=== PATIENT | female | born 1960 | race Caucasian/White ===

== ENCOUNTER → 2017-03-26 | Outpatient (CLI) | payer BC ==
[~2017-03-26] MED LIST: CLEOCIN PO; LORATADINE PO; PREDNISONE PO; SYNTHROID PO
--- NOTE | ~2017-03-26 | MY11 ---
[facility] A Service of [facility] RADIOLOGY TEXT RESULTS PATIENT: JULIANNE ROTHMAN LOCATION: [facility] : 62 UNIT #: [id number] AGE: [address]: JOSELINE SIDHU SEX: F ORDER DR: [id number] [facility] [address] [place], [place] [address] [id number] O MR#: [id number] Acc #: [id number] NAME: JULIANNE ROTHMAN : 1960 SEX: F STUDY DATE/TIME: 03/26/2017 11:23 UNIT: [facility] ROOM: STUDY DESCRIPTION: MY Mammogram Screening [place] Attending Physician: Joseline Sidhu M.D. Referring Physician: Joseline Sidhu M.D. Ordering Physician: Staff Doctor Not On Primary Care Physician: Leonid Ellsworth M.D. MEDICAL IMAGING REPORT This report is preliminary unless electronic signature is present EXAM Screening mammogram 03/26/2017 INDICATIONS 56-year-old. No personal history but a positive family history of breast cancer. No current complaints. FINDINGS Routine digital screening views of both breasts were obtained. Study is reviewed with an FDA-approved CAD device. Comparison made with 02/12/2016, 05/26/2014. Breast parenchyma shows scattered fibroglandular densities. No new masses or suspicious microcalcifications are seen. IMPRESSION Negative mammogram. Routine screen in 1 year is recommended. Patients over the age of 40 are entered into a reminder system with target due date for the next mammogram. A result letter will also be sent to the patient. BIRADS: 1, negative. Dictated by... Ike Nguyen Jr., M.D. THIS IS AN ELECTRONICALLY VERIFIED REPORT Ike Nguyen Jr., M.D. at 03/27/2017 6:10 AM MARGARITA/rosalba TD: 03/26/2017 15:15 [facility] A Service of [facility] RADIOLOGY TEXT RESULTS PATIENT: JULIANNE ROTHMAN LOCATION: [facility] : 62 UNIT #: [id number] AGE: [address]: JOSELINE SIDHU SEX: F ORDER DR: JOB #: [id number] MEDICAL IMAGING REPORT Page 1 of 1 COPY
--- NOTE | ~2017-03-26 | US98 ---
[facility] A Service of [facility] RADIOLOGY TEXT RESULTS PATIENT: JULIANNE ROTHMAN LOCATION: [facility] : 62 UNIT #: [id number] AGE: [address]: JOSELINE SIDHU SEX: F ORDER DR: [id number] [facility] [address] [place], [place] [address] [id number] O MR#: [id number] Acc #: [id number] NAME: JULIANNE ROTHMAN : 1960 SEX: F STUDY DATE/TIME: 03/26/2017 10:46 UNIT: [facility] ROOM: STUDY DESCRIPTION: US Pelvic Non-OB Complete Attending Physician: Joseline Sidhu M.D. Referring Physician: Joseline Sidhu M.D. Ordering Physician: Staff Doctor Not On Primary Care Physician: Leonid Ellsworth M.D. MEDICAL IMAGING REPORT This report is preliminary unless electronic signature is present EXAM Transabdominal and transvaginal pelvic ultrasound, 03/26/17. HISTORY Diffuse lower abdominal and pelvic pain for 3 months. No known injury. FINDINGS Transabdominal and transvaginal pelvic ultrasound was performed. Endovaginal ultrasound was performed for attempted better visualization of the adnexal structures. The bladder is normal in appearance. The uterus is surgically absent as per patient history. The vaginal cuff appears normal. The right ovary measures 7 mm x 8 mm x 1.1 cm while the left ovary was not visualized. No adnexal mass was seen. There is no free fluid in the pelvis. IMPRESSION 1. Surgical absence of the uterus. 2. Normal right ovary. The left ovary was not identified on either transabdominal or transvaginal portions of the examination. There is no adnexal mass and there is no free fluid in the pelvis. Dictated by... Keyshawn Riley M.D. THIS IS AN ELECTRONICALLY VERIFIED REPORT Keyshawn Riley M.D. at 03/27/2017 8:10 AM MARCUS/razia TD: 03/26/2017 19:13 JOB #: [id number] MEDICAL IMAGING REPORT [facility] A Service of [facility] & [facility] RADIOLOGY TEXT RESULTS PATIENT: JULIANNE ROTHMAN [id number] 62 UNIT #: [id number] AGE: [address]: JOSELINE SIDHU SEX: F ORDER DR: Page 1 of 1 COPY
== END | disposition home or self-care (01) ==
LOC: CWCC 10:30
DX: Z12.31 Encounter for screening mammogram for malignant neoplasm of breast (principal); R10.2 Pelvic and perineal pain; Z80.3 Family history of malignant neoplasm of breast; Z90.710 Acquired absence of both cervix and uterus
CPT/HCPCS: 76830; 76856; G0202